=== PATIENT | female | born 1985 ===

== ENCOUNTER 2018-12-26 17:55 | Emergency (ER) | payer SELFPAY ==
[~2018-12-26 17:55] MED LIST: ISOVUE-370 76%-LOCM 1 ML ONE
[2018-12-26] MEDS ORDERED: Ondansetron PF 4 MG/2 ML Vial ONE (18:00)
[2018-12-26] MEDS ORDERED: Adacel (T-DAP) 0.5 ML SYRINGE ONE (18:00)
[2018-12-26] MEDS ORDERED: Lidocaine 1% (PF) 30 ML VIAL ONE (18:38)
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
[2018-12-26 18:41] LABS: #Lymphocytes 1.2 thou/uL (1.20-3.40); #Monocytes 0.6 thou/uL (0.11-0.59); #Neutrophils 4.1 thou/uL (1.40-6.50); %Basophils 0.5 % (0.0-1.0); %Eosinophils 0.6 % (0.0-10.0); %Lymphocytes 19.7 % (21.0-51.0); %Monocytes 10.4 % (0.0-10.0); %Neutrophils 68.8 % (42.0-75.0); Hemoglobin 12.4 g/dL (12.0-16.0); Mean Corpuscular HGB CONC 32.2 g/dL (32.0-36.0); Mean Corpuscular Hemoglobin 30.2 pg (27.0-31.0); Mean Corpuscular Volume 93.5 fL (78.0-98.0); Mean Platelet Volume 7.5 fL (7.4-10.4); Platelet Count 166 thou/uL (130-400); RBC Distribution Width 11.8 % (11.5-14.5); Red Blood Cell (RBC) Count 4.11 mill/uL (4.20-5.40); White Blood Cell (WBC) Count 5.9 thou/uL (4.8-10.8)
[2018-12-26 18:45] LABS: BHCG - Serum Negative (NEGATIVE); Pregs Control Background? CLEAR/WHITE (CLR/WHITE); Pregs Control Bar Appear? YES (CONTROL BAR)
[2018-12-26 18:47] LABS: INR-International Normal Ratio 1.2; PTT 27.9 SEC (22.9-36.1)
[2018-12-26 19:04] LABS: ALT (SGPT) 9 U/L (8-55); AST (SGOT) 11 U/L (5-34); Albumin 3.3 g/dL (3.5-5.0); Alcohol Less than 10 mg/dL (Less than 10); Alkaline Phosphatase 80 U/L (40-150); Anion Gap 11 mmol/L (10-20); BUN (Urea Nitrogen) 12 mg/dL (7.0-18.7); Bilirubin, Total 0.4 mg/dL (0.2-1.2); Calc. Creatinine Clearance 0 mL/min (70-130); Calcium 8.2 mg/dL (7.8-10.44); Carbon Dioxide 23 mmol/L (22-29); Chloride 107 mmol/L (98-107); Estimated GFR-MDRD Greater than 90; Globulin 2.3 g/dL (2.4-3.5); Glucose 86 mg/dL (70-105); Potassium 3.1 mmol/L (3.5-5.1); Protein, Total 5.6 g/dL (6.0-8.3); Sodium 138 mmol/L (136-145)
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
== END 2018-12-26 20:56 | disposition home or self-care (01) ==
LOC: ERS 17:55
DX: S02.2XXA Fracture of nasal bones, initial encounter for closed fracture (principal); S51.012A Laceration without foreign body of left elbow, initial encounter; S11.81XA Laceration without foreign body of other specified part of neck, initial encounter; S46.221A Laceration of muscle, fascia and tendon of other parts of biceps, right arm, initial encounter; F17.210 Nicotine dependence, cigarettes, uncomplicated; V49.9XXA Car occupant (driver) (passenger) injured in unspecified traffic accident, initial encounter
CPT/HCPCS: 12002; 12011; 36415; 70450; 70486; 71260; 72125; 74177; 80053; 80307; 84703; 85025; 85610; 85730; 90471; 90715; 96361; 96374; 96375; G0390; J2001; J2405; Q9966